=== PATIENT | male | born 1945 | race Caucasian/White ===

== ENCOUNTER 2018-03-28 08:35 | Inpatient (IN) | payer MEDICARE ==
[~2018-03-28] VITALS: Ht 188 cm; Wt 92.6 kg
[~2018-03-28 08:35] MED LIST: ALBU90AE INH; ASPI-496 PO; ATOR40TA78 PO; BUPIVACAINE 0.25% ONE; CEFAZOLIN 2,000 MG in SODIUM CHLORIDE 0.9% 50 ML IV SCH; CELE200C PO; CHOL5000 PO; CLINDAMYCIN 150 MG/ML, 6ML ONE; DUTA0.5C PO; EPINEPHRINE 1 MG/ML, 1ML ONE; HYDR-3653 PO; LEVO100T5 PO; METO25TA35 PO; MULT-91 PO; TAMS0.4C2 PO; VITA400C43 PO; VITA80004 PO
[2018-03-28] MEDS ORDERED: MIDAZOLAM 1 MG/ML, 2ML ONE (08:58)
[2018-03-28] MEDS ORDERED: FENTANYL PF 250 MCG/5ML ONE (09:00)
[2018-03-28] MEDS ORDERED: LACTATED RINGERS 1,000 ML IV SCH (09:06)
[2018-03-28] MEDS ORDERED: SCOPOLAMINE PATCH, 1.5MG PATCH.TD72 TD ONE (09:30)
[2018-03-28] MEDS ORDERED: GABAPENTIN 300 MG CAPSULE PO ONE (09:30)
[2018-03-28] MEDS ORDERED: ACETAMINOPHEN 500 MG TABLET PO ONE (09:30)
[2018-03-28] MEDS ORDERED: ROCURONIUM 10 MG/ML,10ML ONE (11:22)
[2018-03-28] MEDS ORDERED: PROPOFOL 10 MG/ML, 20ML ONE (11:22)
[2018-03-28] MEDS ORDERED: SUCCINYLCHOLINE 20 MG/ML, 10ML ONE (11:22)
[2018-03-28] MEDS ORDERED: EPINEPHRINE 1 MG/ML, 30ML IVPB ONE (12:48)
[2018-03-28] MEDS ORDERED: FENTANYL PF 100 MCG/2ML IV PRN (14:00)
[2018-03-28] MEDS ORDERED: LABETALOL 5MG/ML, 20ML IV PRN (14:00)
[2018-03-28] MEDS ORDERED: hydrALAzine 20 MG/ML, 1ML IV PRN (14:00)
[2018-03-28] MEDS ORDERED: ONDANSETRON ODT 8 MG PO PRN (14:00)
[2018-03-28] MEDS ORDERED: OXYcodone 5 MG/5 ML ORAL.SOL UDC PO PRN (14:00)
[2018-03-28] MEDS ORDERED: HYDROmorphone 1 MG/ML, 1ML IV PRN (14:00)
[2018-03-28] MEDS ORDERED: PROMETHAZINE 12.5 MG SUPP PR PRN (14:00)
[2018-03-28] MEDS ORDERED: ONDANSETRON 2MG/ML, 2ML IV PRN ×2 (14:00→16:30)
[2018-03-28 15:41] VITALS: BP 136/86
[2018-03-28] MEDS ORDERED: ACETAMINOPHEN 325 MG TABLET PO PRN (16:30)
[2018-03-28] MEDS ORDERED: HYDROcodone/APAP 5/325 TABLET PO PRN (16:30)
[2018-03-28] MEDS ORDERED: D5%-LACTATED RINGERS 1,000 ML IV SCH (16:30)
[2018-03-28] MEDS ORDERED: DIPHENHYDRAMINE 25 MG CAPSULE PO PRN (16:30)
[2018-03-28] MEDS ORDERED: DIAZEPAM 5 MG TABLET PO PRN (16:30)
[2018-03-28] MEDS ORDERED: BISACODYL 10 MG SUPP PR PRN (16:30)
[2018-03-28] MEDS ORDERED: ALUMINUM/MAG/SIMETHICONE 30 ML UDC PO PRN (16:30)
[2018-03-28] MEDS ORDERED: morphine SULFATE 10 MG/ML, 1ML IV PRN (16:30)
[2018-03-28] MEDS ORDERED: MAGNESIUM HYDROXIDE 8%, 30ML UDC PO PRN (16:30)
[2018-03-28] MEDS ORDERED: SENNA/DOCUSATE TABLET PO PRN (16:30)
[2018-03-28] MEDS: DOCUSATE 100 MG CAPSULE PO SCH (19:28)
[2018-03-28] MEDS: SODIUM CHLORIDE FLUSH 10ML SYR IVF SCH (19:29)
[2018-03-28] MEDS ORDERED: CEFAZOLIN PMX 2GM/100ML 100 ML IVPB SCH (19:30)
[2018-03-28] MEDS ORDERED: CEFAZOLIN 2,000 MG in SODIUM CHLORIDE 0.9% 50 ML IVPB SCH (19:30)
[2018-03-28 21:25] VITALS: BP 108/74
[2018-03-28] MEDS: OXYcodone/APAP 5/325MG TABLET PO PRN (22:02)
[2018-03-29 00:55] VITALS: BP 113/82
[2018-03-29] MEDS ORDERED: CEFAZOLIN 2,000 MG in SODIUM CHLORIDE 0.9% 50 ML IV SCH (03:30)
[2018-03-29 04:26] VITALS: BP 123/77
[2018-03-29] MEDS: OXYcodone/APAP 5/325MG TABLET PO PRN (04:42)
[2018-03-29 05:15] LABS: BASOPHILS # (AUTO) 0.01 x10^3/uL (0-0.1); BASOPHILS % (AUTO) 0 % (0-1); EOSINOPHILS # (AUTO) 0.02 x10^3/uL (0-0.4); EOSINOPHILS % (AUTO) 0 % (1-7); LYMPHOCYTES % (AUTO) 6 % (22-44); MD NO; MEAN CORPUSCULAR HEMOGLOBIN 30.1 pg (27.5-34.5); MEAN CORPUSCULAR HGB CONC 33.6 g/dL (33.2-36.2); MEAN CORPUSCULAR VOLUME 89.6 fL (81-97); MEAN PLATELET VOLUME 9.4 fL (7.4-10.4); MONOCYTES # (AUTO) 0.58 x10^3/uL (0.2-0.8); MONOCYTES % (AUTO) 7 % (2-9); NEUTROPHILS # (AUTO) 7.54 x10^3/uL (1.8-6.8); NEUTROPHILS % (AUTO) 87 % (42-75); PLATELET COUNT 132 x10^3/uL (130-400); RED BLOOD COUNT 4.41 x10^6/uL (4.38-5.82); RED CELL DISTRIBUTION WIDTH 14.1 % (9.4-14.8)
[2018-03-29] MEDS ORDERED: ALBUTEROL SULFATE 2.5 MG/3 ML NPPB PRN (05:30)
[2018-03-29] MEDS ORDERED: ASPIRIN 81 MG TABLET EC PO SCH (06:00)
[2018-03-29] MEDS ORDERED: LEVOTHYROXINE 100 MCG TABLET PO SCH (06:00)
[2018-03-29] MEDS ORDERED: METOPROLOL TARTRATE 25 MG TABLET PO SCH (06:00)
[2018-03-29 07:44] VITALS: BP 115/75
[2018-03-29] MEDS: DOCUSATE 100 MG CAPSULE PO SCH (08:57)
[2018-03-29] MEDS: SODIUM CHLORIDE FLUSH 10ML SYR IVF SCH (08:58)
[2018-03-29] MEDS ORDERED: VITAMIN E 400 UNITS CAPSULE PO SCH (09:00)
[2018-03-29] MEDS ORDERED: CHOLECALCIFEROL 1,000 UNIT TABLET PO SCH (09:00)
[2018-03-29] MEDS ORDERED: DUTASTERIDE 0.5 MG CAPSULE PO SCH (09:00)
[2018-03-29] MEDS ORDERED: MULTIVITAMINS/MINERALS TABLET PO SCH (09:00)
[2018-03-29] MEDS ORDERED: TAMSULOSIN 0.4 MG CAP.ER.24H PO SCH (09:00)
[2018-03-29] MEDS ORDERED: ONDA4TAB7 PO (10:18)
[2018-03-29] MEDS ORDERED: OXYC5CAP2 PO (10:18)
[2018-03-29] MEDS ORDERED: DOCU-131 PO (10:18)
[2018-03-29] MEDS ORDERED: ATORVASTATIN 40 MG TABLET PO SCH (21:00)
== END 2018-03-29 11:29 | disposition home or self-care (01) | DRG 483 ==
LOC: ORIP 08:35 → 4NOR 15:02 → DCLOUNGE 03-29 11:20
PROVIDERS: ADMIT Orthopaedic Surgery; ATTEND Orthopaedic Surgery
PROC: 3E0T3BZ Introduction of Anesthetic Agent into Peripheral Nerves and Plexi, Percutaneous Approach (ICD-10-PCS; 2018-03-28)
PROC: 0RRK0JZ Replacement of Left Shoulder Joint with Synthetic Substitute, Open Approach (ICD-10-PCS; principal; 2018-03-28 10:30)
DX: M19.012 Primary osteoarthritis, left shoulder (principal); I10 Essential (primary) hypertension; E03.9 Hypothyroidism, unspecified; J44.9 Chronic obstructive pulmonary disease, unspecified
CPT/HCPCS: 36415; 85025; C1713; G0378; J0171; J0690; J2250; J2704; J3010; J3490; C1769; C1776; J0330; J7120; J7121